=== PATIENT | male | born 1980 ===

== ENCOUNTER 2017-10-12 07:48 | Day surgery (SDC) | payer OTHER ==
[~2017-10-12] VITALS: Ht 177.8 cm; Wt 70.9 kg
[~2017-10-12 07:48] MED LIST: AMPDEX30CR; GABA100 PO; SEROTONIN PO
== END 2017-10-12 09:55 | disposition home or self-care (01) ==
LOC: ORSCSDS 07:48
PROVIDERS: Ophthalmology
PROC: 08RK3JZ Replacement of Left Lens with Synthetic Substitute, Percutaneous Approach (ICD-10-PCS; principal; 2017-10-12 09:30)
DX: H25.12 Age-related nuclear cataract, left eye (principal); F17.210 Nicotine dependence, cigarettes, uncomplicated
CPT/HCPCS: J2250; J3301; V2632

== ENCOUNTER 2021-11-02 09:50 | Emergency (ER) | payer OTHER ==
[~2021-11-02] VITALS: Ht 175.3 cm; Wt 77.1 kg
[2021-11-02] MEDS ORDERED: AMOCLA875 PO (10:50)
== END 2021-11-02 11:02 | disposition home or self-care (01) ==
LOC: ER 09:50
DX: S61.452A Open bite of left hand, initial encounter (principal); S61.451A Open bite of right hand, initial encounter; F17.200 Nicotine dependence, unspecified, uncomplicated; W55.01XA Bitten by cat, initial encounter
CPT/HCPCS: 99283